=== PATIENT | female | born 1960 | race Hispanic/Latino ===

== ENCOUNTER 2021-04-02 08:24 | Outpatient (CLI) | payer OTHER ==
[2021-04-02 14:27] LABS: Cardiac Risk 4.9 (Less than 4.5)
[2021-04-02 14:32] LABS: #Basophils 0.1 thou/uL (0.0-0.2); #Eosinphils 0.2 thou/uL (0.0-0.7); #Lymphocytes 1.8 thou/uL (1.20-3.40); #Monocytes 0.5 thou/uL (0.11-0.59); #Neutrophils 4.3 thou/uL (1.40-6.50); %Basophils 1.7 % (0.0-1.0); %Eosinophils 2.4 % (0.0-10.0); %Lymphocytes 26.3 % (21.0-51.0); %Neutrophils 62.7 % (42.0-75.0); Hemoglobin 14.7 g/dL (12.0-16.0); Mean Corpuscular HGB CONC 32.3 g/dL (32.0-36.0); Mean Corpuscular Hemoglobin 28.3 pg (27.0-31.0); Mean Corpuscular Volume 87.5 fL (78.0-98.0); Mean Platelet Volume 5.4 fL (7.4-10.4); Platelet Count 270 thou/uL (130-400); RBC Distribution Width 12.2 % (11.5-14.5); White Blood Cell (WBC) Count 6.8 thou/uL (4.8-10.8)
== END 2021-04-02 08:25 | disposition home or self-care (01) ==
LOC: BURLAB 08:24
PROVIDERS: ATTEND Physician Assistant
DX: Z00.00 Encounter for general adult medical examination without abnormal findings (principal)
CPT/HCPCS: 36415; 80061; 85025

== ENCOUNTER 2022-09-22 15:34 | Outpatient (CLI) | payer OTHER | END 2022-09-22 15:35 | disposition home or self-care (01) | LOC: BURRAD 15:34 | PROVIDERS: ATTEND Physician Assistant | DX: J40 Bronchitis, not specified as acute or chronic (principal) | CPT/HCPCS: 71046 ==